=== PATIENT | male | born 1995 | race Caucasian/White ===

== ENCOUNTER 2023-02-28 19:19 | Emergency (ER) | payer OTHER, SELFPAY ==
--- NOTE | ~2023-02-28 | XR_ITS ---
XR ankle LT min 3V DATE: 02/28/2023 19:30 INDICATION: Pain and swelling TECHNIQUE: 3 views COMPARISON: None FINDINGS: There is a linear oblique fracture with mild comminution at the distal fibular shaft, with approximately 3.4 mm posterior displacement. There is mild lateral subluxation of the tibiotalar joint. Very small linear bony density is noted medial to the talar dome, likely a very small cortical avulsi on fracture. The medial and posterior malleoli otherwise appear intact. IMPRESSION: 3 mm posteriorly displaced mildly comminuted oblique linear fracture of the distal fibula r shaft Very small cortical avulsion fracture is noted medial to the talar dome Mild lateral subluxation at the tibiotalar joint Reviewed, dictated and finalized at location A. IMPRESSION: 3 mm posteriorly displaced mildly comminuted oblique linear fractur e of the distal fibular shaft Very small cortical avulsion fracture is noted medial to the talar dome Mild lateral subluxation at the tibiotalar joint
--- NOTE | ~2023-02-28 | XR_ITS ---
XR ankle LT min 3V DATE: 02/28/2023 21:02 INDICATION: Left ankle pain TECHNIQUE: 3 views COMPARISON: 02/28/2023 prereduction radiographs FINDINGS: There is approximately 2 mm posterior displacement at the linear oblique fracture of the di stal fibular shaft. There is minimal residual lateral subluxation of the tibiotalar joint. There is a splint. IMPRESSION: Number splinted left ankle with mild residual lateral tibiotalar subluxation, approximate ly 2 mm posterior displacement and distal fibular shaft fracture Reviewed, dictated and finalized at location A. IMPRESSION: Number splinted left ankle with mild residual lateral tibiotalar miles bluxation, approximately 2 mm posterior displacement and distal fibular shaft f [facility]
[2023-02-28 19:23] VITALS: BP 148/88; PULSE 109; RESP 16; TEMP 37.3; O2SAT 100
[2023-02-28] MEDS: oxyCODONE/ACETAMINOPHEN (*CRX) 5-325 MG TABLET 1 TABLET PO (19:58)
--- NOTE | 2023-02-28 20:02 | ED.LOWEXIN ---
HPI - Extremity Injury (Lower) General Chief Complaint: Extremity Injury, Lower Stated Complaint: left ankle pain Time Seen by Provider: 02/28/23 19:33 History of Present Illness HPI Narrative: This is a 27-year-old male, who denies significant past medical history, presenting to the emergency department after injuring his left ankle while ice-skating. The patient states he was skating along the backboard, when his left leg became caught behind him, twisting it and causing 7/10 immediate pain. Since then the pain is improved to 4/10, is dull and associated with ankle swelling. He was not able to bear weight on the ankle. He has no other complaints and denies other injury. Related Data Allergies Allergy/AdvReac Type Severity Reaction Status Date / Time No Known Allergies Allergy Verified 02/28/23 19:19 Review of Systems Review of Systems: CONSTITUTIONAL: Denies fever, chills, or sweats. CARDIOVASCULAR: Denies chest pain, palpitations, or edema. RESPIRATORY: Denies cough or dyspnea. GASTROINTESTINAL: Denies abdominal pain, nausea, vomiting, or diarrhea. GENITOURINARY: Denies dysuria or hematuria. SKIN: Denies rash or itching. MUSCULOSKELETAL: Left ankle pain and swelling denies back pain or myalgia. NEUROLOGIC: Denies headache, numbness, dizziness, or weakness. PSYCHIATRIC: Denies anxiety or depression. PMFSH Past Medical History Medical History Overweight (BMI 25.0-29.9) Family History Family History Father Hypertension Mother Breast cancer Grandparent Acute myocardial infarction Grandparent Acute myocardial infarction Grandparent Carcinoma of colon Grandparent Alzheimer's dementia Social History Social History Smoking status: Never smoker Alcohol intake: current Substance use: never Exam Narrative: GENERAL: Well-developed, well-nourished, and in no acute distress. HEAD: Normocephalic, atraumatic. EYES: PERRLA and EOMI. CHEST: Clear to auscultation. No respiratory distress. No wheezes rales or rhonchi HEART: Regular rate and rhythm. No murmur heard. Normal peripheral pulses. ABDOMEN: Soft, nontender, nondistended, normal active bowel sounds. EXTREMITIES: Swelling noted to the left ankle, greater at the lateral aspect compared to the medial. Tender to palpation at the medial and lateral aspects. There is no noted erythema or ecchymosis. Range of motion of the left ankle limited by pain. Otherwise normal range of motion of all joints. SKIN: Warm, dry, no rash. NEURO: No focal deficits. Alert and oriented x3. PSYCH: Normal mood and affect. Course Course Emergency Course: 20:02 - X-ray demonstrates comminuted fracture of the distal lateral malleolus with a small avulsion fracture of the medial aspect of talar dome. Will place the patient in a posterior leg splint with stirrups and refer for orthopedic surgery. 21:10 - Splint in appropriate position. Exam is not concerning for neurovascular compromise. X-ray shows slightly improved alignment. Will discharge with pain medications and referral to orthopedic surgery. Discussed return and emergency precautions including signs/symptoms of septic arthritis and neurovascular compromise. The patient voiced understanding and is comfortable with the plan. All questions answered to his satisfaction Vital Signs Vital signs: Vital Signs Temperature 99.1 F 02/28/23 19:23 Pulse Rate 109 H 02/28/23 19:23 Respiratory Rate 16 02/28/23 19:23 Blood Pressure 148/88 H 02/28/23 19:23 Pulse Oximetry 100 02/28/23 19:23 Oxygen Delivery Room Air 02/28/23 19:23 Temperature 99.1 F 02/28/23 19:23 Pulse Rate 109 H 02/28/23 19:23 Respiratory Rate 16 02/28/23 19:23 Blood Pressure 148/88 H 02/28/23 19:23 Pulse Oximetry 100 02/28/23 19:23 Oxygen Delivery Room
== END 2023-02-28 21:23 | disposition home or self-care (01) ==
PROVIDERS: Emergency Provider Preventive Medicine Aerospace Medicine; PCP Family Medicine
DX: S82.432A Displaced oblique fracture of shaft of left fibula, initial encounter for closed fracture (principal); S92.142A Displaced dome fracture of left talus, initial encounter for closed fracture; E66.3 Overweight; Z68.29 Body mass index [BMI] 29.0-29.9, adult; X50.9XXA Other and unspecified overexertion or strenuous movements or postures, initial encounter; Y93.22 Activity, ice hockey
CPT/HCPCS: 29515; 73610; 99284; A9270

== ENCOUNTER 2023-03-04 03:09 | Day surgery (SDC) | payer OTHER, SELFPAY ==
[2023-03-02 11:29] VITALS: BMI 29.4
--- NOTE | 2023-03-02 11:31 | PC.NURSE ---
Report to the Outpatient Waiting Room, entrance under the green pavilion located off [facility], at time 0830 on date 03/04/23. Planned Procedure Time: 1030. Time changes happen often and if your time is changed the preop area will call you the afternoon before. - You and your visitor will be asked to self-screen and do not enter if you have any COVID symptoms. - A mask is optional within the hospital at this time. Patients may have clear liquids (water, carbonated beverages, clear teas, apple juice) until 3 hours prior to surgery with a maximum of 20 ounces. - No food from midnight until time of surgery Take the following medications with a SIP of water the morning of surgery: TYLENOL IF NEEDED DO NOT STOP ANY OF YOUR OTHER PRESCRIPTION MEDICATIONS PRIOR TO SURGERY ?EXCEPT THE FOLLOWING Medications to discontinue per physician: N/A Date to take last dose: N/A Please no make-up, nail macanese, hairspray, perfume, deodorant, or body powder the day of surgery. No jewelry (including any body piercings) or valuables the day of surgery, leave them at home. Please take a shower or bath the night before, or the morning of, surgery with an antibacterial soap. Wear comfortable, loose fitting clothing. - Jewelry must be removed prior to entering the operating room. Rings and piercings that are not removed may be cut off. - The hospital will not accept responsibility for valuables. - Please leave all valuables, including medications, at home the day of surgery. If you are going home after surgery, a licensed rickshaw driver must drive you home. - NO public transportation without another adult if you receive anesthesia. - We recommend that an adult stay with you for 24 hours following discharge. - We also recommend that you do not drive, make important decision, drink alcoholic beverages, or take any drugs that were not prescribed by your health care provider for at least 24 hours after your discharge time. Follow any additional instructions given to you from your surgeon. If you or anyone in your household have experienced Covid symptoms in the past week, please notify your surgeon or the nurse liaison at the phone number below for possible testing. Telephone instructions given to PT - ROBERT LOPEZ and asked if any additional questions and then verbalized understanding. Patient advised to call surgeon office or pre surgery nurse liaison [phone] if any additional questions.
[2023-03-04] VITALS (8 sets, daily range): BP systolic 125–150; BP diastolic 65–97; PULSE 80–98; RESP 14–18; TEMP 36.8–37.1; O2SAT 96–100
--- NOTE | ~2023-03-04 | XR_ITS ---
XR surgery orthopedic Procedure: ORIF left ankle fracture procedure TECHNIQUE: Fluoroscopy used during ORIF left ankle fracture procedure performed by [Mono tyler MD] on 03/04/2023. 37 seconds with 3 images captured. FINDINGS: Correlate with procedure note. IMPRESSION: Fluoroscopy used during ORIF left ankle fracture procedure. Distal fibular fracture in ne ar-anatomic alignment post reduction with sideplate and screws. Ankle mortise grossly intact status p ost reduction. Reviewed, dictated and finalized at location A. IMPRESSION: Fluoroscopy used during ORIF left ankle fracture procedure. Distal fibular fracture in near-anatomic alignment post reduction with sideplate and s crews. Ankle mortise grossly intact status post reduction.
--- NOTE | 2023-03-04 06:37 | WPDANESEPPF ---
Anes - Initial Pre Proc Eval Procedure: Operation Date: 03/04/23 07:30 Proposed Procedures p Open Reducation Internal Fixation Left Ankle Fracture with Syndesmotic Stabilization - Mono Chua MD Date/Time: 03/04/23 06:37 Surgeon: Mono Chua MD Pre Op Diagnosis: left ankle fracture Patient Data Age: 27 Gender: M Height: 1.78 m Weight: 93 kg Allergies Allergy/AdvReac Type Severity Reaction Status Date / Time No Known Allergies Allergy Verified 03/02/23 11:28 Home Medications Medication Instructions Recorded Confirmed Type acetaminophen 500 mg tablet 500 mg PO Q6H PRN Pain 03/02/23 03/02/23 History (Tylenol Extra Strength) aspirin 81 mg chewable tablet 81 mg PO DAILY 03/02/23 03/02/23 History Patient hx anesthesia problems: none Family hx anesthesia problems: none Results Review: All pre-operative results and documents have been reviewed as part of the pre-operative evaluation. [facility] Past Medical History Medical History Closed fracture of left distal fibula Overweight (BMI 25.0-29.9) Syndesmotic disruption of left ankle Surgical History Surgical History History of placement of ear tubes History of tonsillectomy Family History Family History Father Hypertension Mother Breast cancer Grandparent Acute myocardial infarction Grandparent Acute myocardial infarction Grandparent Carcinoma of colon Grandparent Alzheimer's dementia Social History Social History Smoking status: Never smoker Alcohol intake: current Drinks per week: 10 Substance use: never Substance use type: does not use Lack of Transportation: No Lack of Food: Never True Current Housing: I Have Housing Concerned About Future Housing: No Difficulty Paying Gas/Electric Bills: No Difficulty Paying for Meds: No Currently Unemployed: No Education: Bachelor's Degree Difficulty w/ Childcare or Family Care: No Living arrangements: alone Spiritual care concerns: No Anes - Eval Final PreProcedure Day of Procedure 03/04/23 06:37 Patient weight: overweight Heart: regular rate and rhythm Lungs: clear to auscultation Airway: Mallampati scale class II Neurological: alert and oriented Last oral intake: >/= 8 hours ASA classification: II Emergent: no Anesthetic plan: proceed Anesthesia type and monitoring: general LMA and standard monitoring Results Review: All pre-operative results and documents have been reviewed as part of the pre-operative evaluation. Informed Consent: The patient's anesthetic plan and its attendant risks and benefits were discussed with the patient/family/POA. Questions were solicited and answers provided to the satisfaction of the patient/family/POA.
[2023-03-04] MEDS: ACETAMINOPHEN 500 MG TABLET 1000 MG PO (07:00)
[2023-03-04] MEDS: LACTATED RINGERS 1,000 ML 30 ML IV CONT ×2 (07:00→09:04)
[2023-03-04] MEDS: KETOROLAC 15 MG/ML VIAL (*BKC) IV PUSH (07:00)
--- NOTE | 2023-03-04 07:16 | WPDHPUPDATE1 ---
History and Physical Update Update Date/Time: 03/04/23 07:16 History and Physical has been reviewed, including an updated exam of the patient. There are NO changes in the patient's condition. Risks, benefits, and alternatives have been discussed and questions answered. Patient agrees to proceed with procedure.
[2023-03-04] MEDS: ceFAZolin 2 GM/D5W 50 ML 2 GM/50 ML BAG IVPB (07:24)
[2023-03-04] MEDS: BUPivacaine HCL 0.5% 10 ML AMP 20 ML INFILTRATE (08:02)
--- NOTE | 2023-03-04 09:16 | SUR.PHASEI ---
0915 - dr. lr at bedside administering block
--- NOTE | 2023-03-04 09:20 | WPDANESPNB ---
Anes - Peripheral Nerve Block Date/Time: 03/04/23 09:20 I have discussed with the patient/family/POA the placement of a peripheral nerve block for post-operative pain management, including associated risks, benefits, complications, and side effects. Alternative methods of post-operative analgesia were detailed. Questions were solicited and answers provided to the satisfaction of the patient/family/POA. Time-Out: A pre-procedural Time-Out was completed immediately before starting the procedure and confirmed: Patient Identification, Site, Procedure, Patient Position and the Availability of Requisite Equipment. Clinical Indications: Acute post-operative pain management requested by the operative surgeon. Nerve Block Insertion Note Anes-nerve block: posterior fossa sciatic left and other (Saphenous LEFT) Patient position: supine Skin prep: chlorhexidine Needle: 22 gauge, stimulating, insulated echogenic needle. Needle length: 80 mm Technique: nerve stimulation lost at (mA) (.25) Technique comment: DONE IN PACU Injectate: bupivacaine 0.5% with epi 5 mcg/ml (15/5ml) and dexamethasone (mg) (4) Observations: tolerated well Complications: none Procedure start time:: 917 Procedure end time:: 921
[2023-03-04] MEDS: fentaNYL CITRATE INJ (*CRX) 100 MCG/2 ML VIAL 25 MCG IV PUSH ×4 (09:22→09:34)
--- NOTE | 2023-03-04 09:23 | W.PM.PROC2 ---
Procedure Note - Detailed Date of Procedure 03/04/23 Pre-op Diagnosis left distal fibular shaft fracture with distal syndesmotic disruption Post-op Diagnosis Same Procedure Performed 1. ORIF left distal fibular shaft fracture 2. syndesmotic stabilization using tight rope device Surgeon Mono Chua MD [employer] Leighann Kim Anesthesia General Description of Procedure The patient was identified and proper site identified. He was taken to the operating room and transferred to the OR table placing him supine take care to pad a source extremities. After general anesthetic induction and intubation a nonsterile tourniquet was placed high on the left thigh. Left lower extremity was prepped and draped in the usual sterile fashion. The extremity was exsanguinated tourniquet was inflated to 300 millimeters of mercury remaining up for approximately 61 minutes. Longitudinal incision was made over the distal fibular shaft. Subcutaneous tissue sharply dissected down to the fracture protecting neurovascular structures. Fracture site was identified, cleared of debris and then provisionally reduced. This was secured with a 3.5 screw in a lag fashion. After this a distal fibular locking plate was applied to the fibular shaft and secured with a combination of 2.7 millimeter and 3.5 millimeter screws under fluoroscopic visualization. The syndesmosis was able to be reduced and held with a reduction clamp. After this was accomplished the tight rope device was inserted through the plate across the tibia and then secured. It was tightened with the ankle in a neutral position. The reduction was assessed fluoroscopically in the AP, lateral and mortise views. Talus is position anatomic in the mortise and the joint was stable. The wound was irrigated with sterile saline skin edges reapproximated with 2-0 Quill and terrie. Surgical site was infiltrated with 20 cubic centimeters of 0.5% plain Marcaine. Sterile dressings applied and the tourniquet was released. A well-padded stirrup type ankle splint was applied. Patient tolerated the procedure well. He was awakened, extubated and taken to recovery area in stable condition. There were no known intraoperative complications. Estimated blood loss 15 milliliters. He received perioperative antibiotics. Estimated Blood Loss -15.0 Tourniquet Time 61 Drains No Packing No Pathology None sent Complications No immediate complications Condition Stable Disposition PACU [facility] Billing Surgery - Charge Forward: Surgery Billing ([id number], [id number], [id number])
[2023-03-04] MEDS: ONDANSETRON INJ 4 MG/2 ML VIAL IV PUSH (10:23)
== END 2023-03-04 10:45 | disposition home or self-care (01) ==
PROVIDERS: PCP Family Medicine; Visit Provider Orthopaedic Surgery
PROC: (CPT 27784; principal; 2023-03-04 07:30)
DX: S82.832A Other fracture of upper and lower end of left fibula, initial encounter for closed fracture (principal); S93.432A Sprain of tibiofibular ligament of left ankle, initial encounter; G89.18 Other acute postprocedural pain; X58.XXXA Exposure to other specified factors, initial encounter; Y93.22 Activity, ice hockey; Z79.82 Long term (current) use of aspirin
CPT/HCPCS: 27784; 27829; 64445; 64450; 99199; A9270; C1713; J0690; J1100; J1170; J1885; J2250; J2405; J2704; J3010; J7120